=== PATIENT | male | born 1955 | race American Indian/Alaskan Native ===

== ENCOUNTER → 2023-10-06 | Outpatient (CLI) | payer MEDICARE, OTHER ==
[~2023-10-06] MED LIST: ASPI81CH PO; ATORVASTATIN CA80 M1 PO; CARV6.25 PO; CLOP75 PO; LOSA50 PO; MELO7.5 PO
== END ==
LOC: LAB SHORT 19:01 → LAB 19:01
DX: R20.2 Paresthesia of skin (principal)
CPT/HCPCS: 82607; 82746